=== PATIENT | female | born 1975 | race Caucasian/White ===

== ENCOUNTER 2016-11-22 23:21 | Emergency (ER) | payer MEDICARE ==
[~2016-11-22] VITALS: Ht 167.6 cm; Wt 107.0 kg
--- NOTE | 2016-11-23 00:41 | PHYS DOC ---
Past Medical History Past Medical History: Anxiety, Bipolar, Schizophrenia Additional Past Medical Histor: PANIC ATTACKS Past Surgical History: Hysterectomy Alcohol Use: None Drug Use: Marijuana, Phencyclidine Adult General Chief Complaint Chief Complaint: ALTERED MENTAL STATUS HPI HPI Patient is a 41 year old female who is brought in by EMS secondary to altered mental status. Patient reports that she followED her ex- to the gas station. She reports that her son within the car with her who is 7 years old. She reports that when to the gas station, drink and then she went to his car. She reports her son was in her car. She reports while she was in her ex-' s car they smoked PCP. Patient does not have much recollection thereafter. Patient reports she still feels somewhat dizzy and off kilter. Patient denies any history of hypertension diabetes liver longer kidney problems. Patient reports she does smoke. Does not drink alcohol. Patient reports that she uses PCP and marijuana. Patient is allergic to any medications. Patient has any fevers shakes chills nausea vomiting diarrhea chest pain terns of breath cough cold or runny nose at this time. Patient is somewhat tearful and feels embarrassed by what she did. Patient's physical exam is unremarkable in the ER. She is alert awake and oriented 3. Patient is appropriate. Patient is tearful. Patient's heart was regular rate and rhythm. Lungs were clear. Abdomen was soft nontender no rebound or guarding. Patient moving all exam is well. Patient has a nonfocal neuro exam at this time. Assessment and plan. This is a 41-year-old female who presents here today secondary to altered mental status most likely secondary to smoking PCP. Patient is clinically hemodynamically stable this time. I have counseled the patient progressively about not utilizing PCP anymore especially around her son. Patient denies driving opening her son at harm. Patient reports that she was in her 's car smoking PCP and her son was in a different car altogether. She reports that she did not smoke PCP all she was driving her son. Patient's clinically hemodynamically stable for discharge to home. We will consult [place] police for recommendations regarding child endangerment and the recommendations for proceeding from here. Review of Systems Review of Systems Constitutional: Denies fever or chills [] Eyes: Denies change in visual acuity, redness, or eye pain [] HENT: Denies nasal congestion or sore throat [] All other review systems are negative except as documented in the history of present illness portion. Allergies Allergies Allergies Coded Allergies Type Severity Reaction Last Updated Verified No Known Drug Allergies 11/22/16 No Physical Exam Physical Exam Constitutional: Well developed, well nourished, no acute distress, non-toxic appearance. [] HENT: Normocephalic, atraumatic, bilateral external ears normal, oropharynx moist, no oral exudates, nose normal. [] Eyes: PERRLA, EOMI, conjunctiva normal, no discharge. [] Neck: Normal range of motion, no tenderness, supple, no stridor. [] Cardiovascular:Heart rate regular rhythm, Lungs & Thorax: Bilateral breath sounds clear to auscultation [] Abdomen: Bowel sounds normal, soft, no tenderness, no masses, no pulsatile masses. [] Skin: Warm, dry, no erythema, no rash. [] Back: No tenderness, no CVA tenderness. [] Extremities: No tenderness, no cyanosis, no clubbing, ROM intact, no edema. [] Neurologic: Alert and oriented X 3, normal motor function, normal sensory function, no focal deficits noted. [] Psychologic: Affect normal, judgement normal, mood normal. [] Current Patient Data Vital Signs Vital Signs Date Time Temp Pulse Resp B/P (MAP) Pulse Ox O2 Delivery O2 Flow Rate FiO2 11/22/16 23:33 98.3 102 20 144/94 (111) 98 Room Air 98.3 EKG EKG [] Radiology/Procedures Radiology/Procedures [] Course & Med Decision Making Course & Med Decision Making Pertinent Labs and Imaging studies reviewed. (See chart for details) [] Dragon Disclaimer Dragon Disclaimer This electronic medical record was generated, in whole or in part, using a voice recognition dictation system. Departure Departure Impression: Primary Impression: Altered mental status Additional Impressions: Drug abuse PCP abuse Disposition: 01 HOME, SELF-CARE Condition: IMPROVED Referrals: NO PCP (PCP) Patient Instructions: Drug Abuse, FAQs Problem Qualifiers Primary Impression: Altered mental status Altered mental status type: unspecified Qualified Codes: R41.82 - Altered mental status, unspecified MYRA RAMOS MD November 23, 2016 00:41
[2016-11-23 00:54] VITALS: BP 135/79
== END 2016-11-23 01:09 | disposition home or self-care (01) ==
LOC: ER 23:21
DX: R41.82 Altered mental status, unspecified (principal); F16.10 Hallucinogen abuse, uncomplicated; F31.9 Bipolar disorder, unspecified; F41.0 Panic disorder [episodic paroxysmal anxiety]; F20.9 Schizophrenia, unspecified; F12.10 Cannabis abuse, uncomplicated
CPT/HCPCS: 99283